=== PATIENT | male | born 1980 | race American Indian/Alaskan Native ===

== ENCOUNTER 2017-02-12 08:26 | Outpatient (CLI) | payer OTHER ==
--- NOTE | 2017-02-13 13:15 | Ultrasound Report ---
RENAL ULTRASOUND: 02/12/17 09:00:00 CLINICAL: Hematuria. FINDINGS: High resolution ultrasound demonstrated nondilated renal collecting systems. An echogenic focus in the hilum of the left kidney is suspicious for a calculus. Normal echogenicity of the kidneys. No renal mass or cyst. The right kidney measures 10.9 x 4.6 x 5.7-cm. The renal parenchyma measures 1.4-cm in thickness. The left kidney measures 11.6 x 6.0 x 6.1-cm. The renal parenchyma measures 1.7-cm in thickness. Minimally distended and normal urinary bladder. IMPRESSION: A possible calculus in the left renal pelvis. Consider CT stone protocol.
== END 2017-02-12 08:27 | disposition home or self-care (01) ==
LOC: US 08:26
PROVIDERS: ATTEND Internal Medicine
DX: R31.9 Hematuria, unspecified (principal); N32.89 Other specified disorders of bladder
CPT/HCPCS: 76770

== ENCOUNTER 2017-02-25 10:20 | Outpatient (CLI) | payer OTHER ==
--- NOTE | 2017-02-25 12:44 | Cat Scan Report ---
CT of the abdomen and pelvis without contrast. History: Renal stone. Findings: The liver, spleen, and pancreas appear normal. The kidneys are normal in size and configuration with no evidence of hydronephrosis or mass. No renal stones are identified on this study. There no pelvic masses or abnormal fluid collections. No mesenteric inflammation seen. Impression: Normal study.
== END 2017-02-25 10:21 | disposition home or self-care (01) ==
LOC: CT 10:20
PROVIDERS: ATTEND Internal Medicine
DX: N20.0 Calculus of kidney (principal)
CPT/HCPCS: 74176